=== PATIENT | female | born 1955 | race Caucasian/White ===

== ENCOUNTER 2017-05-04 17:09 | Emergency (ER) | payer OTHER, BC ==
[2017-05-04] MEDS: HYDROCODONE/APAP (10/325) TAB PO (19:15)
[2017-05-04] MEDS: ONDANSETRON (ODT) 4 MG TAB ODT (19:15)
== END 2017-05-04 21:55 | disposition home or self-care (01) ==
LOC: FTE 17:09
DX: M79.602 Pain in left arm (principal)
CPT/HCPCS: 29125; 73090; 99283-25